=== PATIENT | female | born 1950 | race Caucasian/White ===

== ENCOUNTER 2018-11-30 08:06 | Outpatient (CLI) | payer BC ==
[2018-11-30 08:48] LABS: BILIRUBIN,URINE NEGATIVE (NEGATIVE); BLOOD, URINE 1+ (NEGATIVE); CLARITY/URINE CLEAR (CLEAR); COLOR,URINE YELLOW (YELLOW); GLUCOSE,URINE NEGATIVE (NEGATIVE); KETONES,URINE NEGATIVE (NEGATIVE); LEUKOCYTE ESTERASE ,URINE TRACE (NEGATIVE); NITRITE, URINE NEGATIVE (NEGATIVE); PH,URINE 5.5 (5.0-8.0); PROTEIN URINE NEGATIVE (NEGATIVE); UROBILINOGEN,URINE 0.2 (0.2-1.0)
[2018-11-30 09:00] LABS: BASOPHILS % (AUTO) 0.7 % (0.0-2.0); EOSINOPHILS # (AUTO) 0.1 K/uL (0.0-0.4); EOSINOPHILS % (AUTO) 1.7 % (0.0-4.0); HEMATOCRIT 40.1 % (36-48); HEMOGLOBIN 13.7 g/dL (12.0-16.0); LYMPHOCYTES # (AUTO) 2.4 K/uL (1.0-5.5); MEAN CORPUSCULAR HEMOGLOBIN 32 pg (27-31); MEAN CORPUSCULAR HGB CONC 34 % (32-36); MEAN CORPUSCULAR VOLUME 94 fL (79.0-98.0); MONOCYTES # (AUTO) 0.5 K/uL (0.0-1.0); MONOCYTES % (AUTO) 8.2 % (1.7-9.3); NEUTROPHILS # (AUTO) 3.5 K/uL (1.8-7.7); NEUTROPHILS % (AUTO) 52.4 % (40.0-70.0); PLATELET COUNT (AUTO) 259 K/uL (130-430); RED BLOOD CELL COUNT(AUTO) 4.28 MIL/uL (4.2-6.2); RED CELL DISTRIBUTION WIDTH 13.1 % (9.0-15.0); WHITE BLOOD COUNT (AUTO) 6.6 K/uL (4.8-10.8)
[2018-11-30 09:08] LABS: BACTERIA,URINE FEW /HPF (None Seen); MUCUS,URINE 1+ /LPF (None Seen); RBC,URINE 0-3 /HPF (0-3); WBC,URINE 0-3 /HPF (0-3)
[2018-11-30 09:28] LABS: ALBUMIN 3.7 g/dL (3.4-4.8); CALCIUM 9.1 mg/dL (8.4-11.0); CREATININE 0.83 mg/dL (0.55-1.30); POTASSIUM 4.2 mmol/L (3.5-5.1); THYROID STIMULATING HORMONE 0.33 uIu/mL (0.34-4.82); TOTAL BILIRUBIN 0.4 mg/dL (0.0-1.0); URIC ACID 5.6 mg/dL (2.4-7.0)
[2018-12-02 13:15] LABS: FOLATE (FOLIC ACID) 9.4 ng/mL (>3.0)
== END 2018-11-30 21:07 | disposition home or self-care (01) ==
LOC: SLB 08:06
PROVIDERS: ATTEND Family Medicine
DX: E78.5 Hyperlipidemia, unspecified (principal); I10 Essential (primary) hypertension; E55.9 Vitamin D deficiency, unspecified; Z76.89 Persons encountering health services in other specified circumstances
CPT/HCPCS: 36415; 80053; 80061; 81000-TC; 82306; 82607; 82746; 84443-TC; 84550-TC; 85025

== ENCOUNTER 2019-08-11 08:55 | Day surgery (SDC) | payer BC ==
[~2019-08-11] VITALS: Ht 154.9 cm; Wt 71.2 kg
[~2019-08-11 08:55] MED LIST: CEFAZOLIN 1 GM IVPB PREMIX 50 ML IV ONE
[2019-08-11] MEDS ORDERED: LR 1,000 ML IV SCH (13:21)
[2019-08-11] MEDS ORDERED: ONDANSETRON HCL 4 MG/2 ML VIAL IVP PRN (13:30)
[2019-08-11] MEDS ORDERED: HYDROmorphone 1 MG INJ. 1 MG/ML AMPUL IVP PRN ×2 (13:30)
[2019-08-11] MEDS ORDERED: HYDROcodone/ACETAMIN 5-325 MG TAB (NORCO/ VICODIN) PO PRN (15:30)
[2019-08-11] MEDS ORDERED: OXYCODONE/ACETAMINOPHEN 5-325 TABLET PO PRN ×2 (15:30)
[2019-08-11] MEDS ORDERED: SUCCINYLCHOLINE CHLORIDE 20 MG/ML(QUELICIN) ONE (15:39)
[2019-08-11] MEDS ORDERED: WATER FOR IRRIGATION,STERILE 1,000 ML IRRIG.SOLN IR ONE (15:39)
[2019-08-11] MEDS ORDERED: LIDOCAINE/EPI 1% 1:100000 20 ML VIAL INJ ONE (15:39)
[2019-08-11] MEDS ORDERED: NS IRRIG SOLN 1000 ML IR ONE (15:39)
[2019-08-11] MEDS ORDERED: LR 1,000 ML IV.SOLN IV ONE (15:39)
[2019-08-11] MEDS ORDERED: DEXAMETHASONE SOD PHOSPHATE 4 MG/ML VIAL ONE (15:39)
[2019-08-11] MEDS ORDERED: DEXTROSE 50% JECT 50 ML DISP.SYRIN IVP ONE (15:39)
[2019-08-11] MEDS ORDERED: PROPOFOL 200MG/ 20ML VIAL (DIPRIVAN) IV ONE (15:39)
[2019-08-11] MEDS ORDERED: ROCURONIUM BROMIDE 10 MG/ML (ZEMURON) ONE (15:39)
[2019-08-11] MEDS ORDERED: DEXTROSE 50% JECT 50 ML DISP.SYRIN ONE (15:39)
[2019-08-11] MEDS ORDERED: hydrALAZINE HCL 20 MG/ML VIAL ONE (15:39)
[2019-08-11] MEDS ORDERED: FUROSEMIDE 20 MG/2 ML VIAL ONE (15:39)
[2019-08-11] MEDS ORDERED: ROPIVACAINE HCL/PF 0.2% EPIDURAL 200 ML PLAST..BAG EP ONE (15:39)
[2019-08-11] MEDS ORDERED: DESFLURANE 15 MIN GAS INH ONE (15:39)
[2019-08-11] MEDS ORDERED: KETOROLAC TROMETHAMINE 30 MG VIAL ONE (15:39)
[2019-08-11] MEDS ORDERED: HYDROmorphone 2 MG/ML VIAL ONE (15:39)
[2019-08-11] MEDS ORDERED: fentaNYL CITRATE/PF 100 MCG/2 ML AMP ONE (15:39)
[2019-08-11] MEDS ORDERED: ONDANSETRON HCL 4 MG/2 ML VIAL ONE (15:39)
[2019-08-11] MEDS ORDERED: BUPIVACAINE /PF 0.5% 30 ML VIAL ONE (15:39)
[2019-08-11 16:20] VITALS: BP_SYST 140
[2019-08-11] MEDS: ONDANSETRON HCL 4 MG/2 ML VIAL IVP PRN ×2 (18:57→21:24)
[2019-08-12] MEDS ORDERED: METOCLOPRAMIDE HCL 10 MG/2 ML VIAL IVP PRN (00:45)
== END 2019-08-12 09:10 | disposition home or self-care (01) ==
LOC: SDS 08:55 → SMU 08:55 → SPU 16:40 → SDS 08-12 09:10
PROVIDERS: ATTEND Specialist
DX: N81.4 Uterovaginal prolapse, unspecified (principal); N95.2 Postmenopausal atrophic vaginitis; N81.89 Other female genital prolapse; G43.909 Migraine, unspecified, not intractable, without status migrainosus; I10 Essential (primary) hypertension; E66.9 Obesity, unspecified; Z68.29 Body mass index [BMI] 29.0-29.9, adult; Z79.899 Other long term (current) drug therapy; Z98.890 Other specified postprocedural states
CPT/HCPCS: 57230; 58552; 88305; 88307; C1727; J0330; J0360; J0690; J1100; J1170; J1885; J1940; J2405; J2704; J2765; J3010; J3490; J7120; E0190